=== PATIENT | female | born 1980 | race Caucasian/White ===

== ENCOUNTER 2022-05-02 17:41 | Emergency (ER) | payer BC, SELFPAY ==
--- NOTE | ~2022-05-02 | XR_ITS ---
XR chest 2V DATE: 05/02/2022 18:53 INDICATION: Chest pressure, dizziness. Hypertension. Headache. TECHNIQUE: PA and lateral views COMPARISON: None FINDINGS: Normal heart size. No hilar or mediastinal enlargement. No pulmonary infiltrate or consolid ation, pleural effusion or pulmonary vascular congestion or pneumothorax. Status post cholecystectomy. IMPRESSION: No active cardiopulmonary disease Reviewed, dictated and finalized at location A. PIT QUARRY SUPERVISOR
[2022-05-02 18:16] VITALS: BP 149/88; PULSE 95; RESP 16; TEMP 36.9; O2SAT 100
--- NOTE | 2022-05-02 18:20 | ECG_ITS ---
Measurements Intervals [place] Rate: 96 P: 46 DC: 154 QRS: 26 QRSD: 75 T: 1 QT: 347 QTc: 438 Interpretive Statements SINUS RHYTHM NO PREVIOUS ECG AVAILABLE FOR COMPARISON Electronically Signed On 05-03-2022 17:51:19 TENNIS COACH by Timothy Ruano M.D.
[2022-05-02 19:29] LABS: Basophils Absolute Auto 0.1 K/mm3 (0.0-0.1); Basophils Percent Auto 0.7 % (0.2-1.2); Eosinophils Absolute Auto 0.3 K/mm3 (0-0.3); Eosinophils Percent Auto 3.3 % (0-4.4); Hematocrit 40.4 % (37.0-47.0); Hemoglobin 13.1 g/dL (12.0-15.0); Immature Granulocyte Absolute 0.03 K/mm3 (0.00-0.031); Immature Granulocyte Percent A 0.3 % (0-0.5); Lymphocytes Absolute Auto 1.76 K/mm3 (0.9-3.2); Lymphocytes Percent Auto 17.7 % (18.3-44.2); Mean Corpuscular HGB Conc 32.4 g/dl (32-36); Mean Corpuscular Hemoglobin 29.8 pg (26-34); Mean Platelet Volume 9.8 fl (7.4-10.4); Monocytes Absolute Auto 0.7 K/mm3 (0.1-0.6); Platelet Count Result 411 k/mm3 (150-375); Red Blood Count 4.39 M/mm3 (4.2-5.4); Red Cell Distribution Width 12.5 % (11.5-14.5); White Blood Count 9.9 K/mm3 (4.5-10.0)
[2022-05-02 19:42] LABS: Alanine Aminotransferase 42 U/L (6-35); Alkaline Phosphatase 88 U/L (38-126); Anion Gap 6 mmol/L (8-16); Aspartate Amino Transferase 37 U/L (14-36); Bilirubin,Total 0.3 mg/dL (0.2-1.3); Blood Urea Nitrogen 10 mg/dL (7-17); Calcium 8.9 mg/dL (8.4-10.2); Carbon Dioxide 28 mmol/L (22-30); Chloride 100 mmol/L (98-107); Estimated CRCL calculation 102 ml/min; Estimated Glomerular Filt Rate > 60; Glucose 95 mg/dL (65-110); Lipase 95 U/L (23-300); Potassium 3.9 mmol/L (3.4-5.0); Sodium 134 mmol/L (137-145)
[2022-05-02 20:19] LABS: Troponin I < 0.012 ng/mL (0.000-0.034)
[2022-05-02 20:26] LABS: INR 1.1; Prothrombin Time 14.1 Seconds (11.1-14.7)
[2022-05-02 20:27] LABS: Partial Thromboplastin Time 31.7 SECONDS (22.3-36.8)
--- NOTE | 2022-05-02 21:35 | ED.GENADULT ---
HPI - General Adult General Chief complaint: Headache Stated complaint: hypertension Time Seen by Provider: 05/02/22 21:19 History of Present Illness HPI narrative: 41-year-old female states that she had a mild headache on her left side that was throbbing, fellow anxious and took her blood pressure, noticed that it was high, we did 10 minutes and took it again and noticed that it was even higher, and felt some chest discomfort. Related Data Allergies Allergy/AdvReac Type Severity Reaction Status Date / Time No Known Drug Allergies Allergy Mild Verified 09/14/18 11:22 Review of Systems Review of Systems: CONST: No fever. HEENT: No sore throat C/V: Some chest discomfort RESP: Cough for 2 weeks GI: No abdominal pain : No dysuria. M/S: No joint pain or lower extremity swelling. SKIN: No rash. NEURO: [Headache, no focal numbness or weakness] PSYCH: Somewhat anxious PMF Past Medical History Medical History IBS (irritable bowel syndrome) Family History Family History Other Asthma Family history of arthritis Family history of cardiovascular disease Family history of seizure disorder Social History Social History Alcohol intake: current Exam Narrative: EXAMINATION OF ORGAN SYSTEMS/BODY AREAS: Constitutional: Vital signs per nursing GENERAL:[No acute distress, non-toxic appearing.] HEAD: Normal with no signs of head trauma. EYES: EOMI, conjunctiva normal ENT: Hearing grossly intact LUNGS: Nonlabored breathing. HEART: [Regular rate and rhythm] ABD: [Soft], [nontender to palpation] EXT: Normal range of motion SKIN: [No rashes or lesions.] NEURO: [Alert and oriented x 3. C2-12 intact. No focal sensory or strength deficits. Ambulating with normal steady gait] PSYCH: Normal affect Course Vital Signs Vital signs: Vital Signs Temperature 98.4 F 05/02/22 18:16 Pulse Rate 95 05/02/22 18:16 Respiratory Rate 16 05/02/22 18:16 Blood Pressure 149/88 H 05/02/22 18:16 Pulse Oximetry 100 05/02/22 18:16 Oxygen Delivery Room Air 05/02/22 18:16 Temperature 98.4 F 05/02/22 18:16 Pulse Rate 95 05/02/22 18:16 Respiratory Rate 16 05/02/22 18:16 Blood Pressure 149/88 H 05/02/22 18:16 Pulse Oximetry 100 05/02/22 18:16 Oxygen Delivery Room Air 05/02/22 18:16 Medical Decision Making MDM Narrative Medical decision making narrative: Patient with hypertension. Very well appearing here with normal exam, No signs or symptoms of end organ dysfunction; no chest pain or shortness of breath, neurological deficits, severe headaches, visual disturbance, oliguria, or symptoms of dissection/AAA). PERC neg. Long-term risks of hypertension, especially uncontrolled, were discussed including increased risks of kidney disease, vascular disease, stroke and heart disease. We discussed lifestyle modifications including diet and exercise. Labs, EKG, CXR here are unremarkable. EKG - 12-Lead: Performed at 1921. Interpreted by me. [Sinus rhythm]. Rate 96. [Normal] axis. MO-interval [normal]. QRS duration [normal]. QTc [normal]. [No ST segment elevation or depression]. [T-wave normal]. Impression: No EKG evidence of acute ischemia or dysrhythmia. Patient is offered medicine for headache here which she declined as she does not like taking medicine, I did discuss with patient that I have lower concern for intracranial abnormality but that if anything were to worsen or change, she should come back and we can obtain imaging at that time. Patient expressed understanding of the instructions and strongly advised to follow-up with PMD for further management. Vital Signs Vital Signs: Vital Signs Temperature 98.4 F 05/02/22 18:16 Pulse Rate 95 05/02/22 18:16 Respiratory Rate 16 05/02/22 18:16 Blood Pressure 149/88 H 05/02/22 18:16 Pulse Oxim
== END 2022-05-02 22:08 | disposition home or self-care (01) ==
PROVIDERS: Emergency Medicine; Emergency Provider Emergency Medicine; PCP Family Medicine
DX: R51.9 Headache, unspecified (principal); I10 Essential (primary) hypertension; K58.9 Irritable bowel syndrome, unspecified
CPT/HCPCS: 36415; 71046; 80053; 83690; 84484; 85025; 85610; 85730; 93005; 99284

== ENCOUNTER 2022-05-15 16:18 | Emergency (ER) | payer BC, SELFPAY ==
--- NOTE | ~2022-05-15 | XR_ITS ---
EXAM: XR ankle LT min 3V DATE: 05/15/2022 17:25 HISTORY: left ankle pain, injury, fall, BRUISING/ DEFORITY . COMPARISON: None available. FINDINGS: Normal mineralization. Comminuted oblique fracture of the distal left tibial shaft with sl ightly less than one half shaft width lateral displacement. Comminuted, segmental fracture of the dis cullen left fibular shaft, with one half shaft width posterior displacement. No lytic or blastic lesion. Joint spaces are maintained. No erosion or periosteal change. Soft tissue swelling over the fracture sites. IMPRESSION: Comminuted and displaced fractures of the distal left tibial and fibular shafts. Reviewed, dictated and finalized at location K. OUND SALES CONSULTANT IMPRESSION: Comminuted and displaced fractures of the distal left tibial and fi bular shafts.
--- NOTE | ~2022-05-15 | XR_ITS ---
EXAM: XR knee LT min 4V DATE: 05/15/2022 17:25 HISTORY: left leg pain, injury, FALL TODAY, PAIN WITH MOVEMENT . COMPARISON: None available. FINDINGS: Normal mineralization. No fracture or dislocation. No lytic or blastic lesion. Minimal lef t knee osteoarthritis. No erosion or periosteal change. Soft tissues within normal limits. Small volu me joint effusion. IMPRESSION: No acute osseous finding in the left knee. Reviewed, dictated and finalized at location K. ECT SCHEDULER
--- NOTE | ~2022-05-15 | XR_ITS ---
EXAM: XR hip LT min 3V w AP pelvis DATE: 05/15/2022 17:25 HISTORY: left hip pain, fall TODAY, PAIN WITH MOVEMENT . COMPARISON: None available. FINDINGS: Normal mineralization. No fracture or dislocation. No lytic or blastic lesion. Joint space s are maintained. No erosion or periosteal change. Soft tissues within normal limits. IMPRESSION: No acute osseous finding in the left hip or pelvis. Reviewed, dictated and finalized at location K. MANAGER
[2022-05-15 16:25] VITALS: BP 146/99; PULSE 100; RESP 17; TEMP 37; O2SAT 100
[2022-05-15] MEDS: ONDANSETRON INJ 4 MG/2 ML VIAL IV PUSH (16:51)
[2022-05-15] MEDS: MORPHINE SULFATE (*CRX) 4 MG/ML INJ IV PUSH (16:52)
--- NOTE | 2022-05-15 16:58 | ED.FALL ---
HPI - Fall General Chief Complaint: Fall <Magaly Bell PA-C - Last Filed: 05/15/22 18:35> Stated Complaint: fall down stairs, left lower leg pain <KATHLEEN Walker Last Filed: 05/15/22 18:35> Time Seen by Provider: 05/15/22 16:23 <Magaly Bell PA-C - Last Filed: 05/15/22 18:35> Source: patient, family and EMS <KATHLEEN Walker Last Filed: 05/15/22 18:35> Mode of arrival: EMS <KATHLEEN Walker Last Filed: 05/15/22 18:35> Limitations: no limitations <KATHLEEN Walker Last Filed: 05/15/22 18:35> History of Present Illness HPI Narrative: This is a 41 year old female that presents to the ER for left ankle pain after an injury just prior to arrival. Reports she tripped walking down the steps in her home. Reports falling down about 3 steps. Reports swelling and pain to the ankle. Also reports left hip pain. Reports decreased ROM in the ankle due to pain. She did not hit her head or lose consciousness. Denies numbness. <Magaly Bell PA-C - Last Filed: 05/15/22 18:35> Related Data Allergies/Adverse Reactions: Allergies Allergy/AdvReac Type Severity Reaction Status Date / Time No Known Allergies Allergy Verified 05/15/22 16:31 <KATHLEEN Walker Last Filed: 05/15/22 18:35> Review of Systems Review of Systems: CONSTITUTIONAL: Denies fever, MUSCULOSKELETAL: Reports joint pain, and myalgia. NEUROLOGIC: Denies numbness, or weakness. <KATHLEEN Walker Last Filed: 05/15/22 18:35> All systems reviewed & are unremarkable except as noted in HPI and below <KATHLEEN Walker Last Filed: 05/15/22 18:35> PMFSH Past Medical History Medical History: Medical History IBS (irritable bowel syndrome) <Magaly Bell PA-C - Last Filed: 05/15/22 18:35> Family History Family History: Family History Other Asthma Family history of arthritis Family history of cardiovascular disease Family history of seizure disorder <Magaly Bell PA-C - Last Filed: 05/15/22 18:35> Social History Social History: Social History Alcohol intake: current <Magaly Bell PA-C - Last Filed: 05/15/22 18:35> Exam Narrative: GENERAL: Well-appearing, well-nourished, and in no acute distress. HEAD: Normocephalic, atraumatic. EYES: EOMI. NECK: No midline spinal tenderness CHEST: Clear to auscultation. No respiratory distress. No wheezes rales or rhonchi HEART: Regular rate and rhythm. No murmur heard. Normal peripheral pulses. EXTREMITIES: Normal range of motion. Left ankle with mild swelling and bruising. Normal DP pulse. Normal sensation SKIN: Warm, dry, no rash. NEURO: No focal deficits. Alert and oriented x3. Cranial nerves II through XII grossly intact PSYCH: Normal mood and affect <Magaly Bell PA-C - Last Filed: 05/15/22 18:35> Course Course Emergency Course: Patient and family updated on work-up <Magaly Bell PA-C - Last Filed: 05/15/22 18:35> PRISON TEACHER/PA Physician Supervision For this patient encounter, I reviewed the PRISON TEACHER or PA documentation, treatment plan, and medical decision making; and I had [id number] time with this patient. <Mauri Jay MD - Last Filed: 05/15/22 21:33> Consultations Consultation #1: Spoke with Dr. Nieto about patient and work-up. Recommends transfer to trauma facility <Magaly Bell PA-C - Last Filed: 05/15/22 18:35> Date: 05/15/22 <Magaly Bell PA-C - Last Filed: 05/15/22 18:35> Consultation #2: Spoke with Dr. Aviles about patient and workup, [facility] <Magaly Bell PA-C - Last Filed: 05/15/22 18:35> Date: 05/15/22 <Magaly Bell PA-C - Last Filed: 05/15/22 18:35> Vital Signs Vital signs: Vital Signs Temperature 98.6 F 05/15/22 16:25 Pulse Ra
--- NOTE | 2022-05-15 18:09 | PC.NURSE ---
house sup = EULALIA Villareal ems to [facility] ER
[2022-05-15] MEDS: fentaNYL CITRATE INJ (*CRX) 100 MCG/2 ML VIAL 50 MCG IV PUSH (18:11)
[2022-05-15 18:17] VITALS: BP 150/84; PULSE 102; RESP 18; O2SAT 100
== END 2022-05-15 18:40 | disposition short-term general hospital (02) ==
PROVIDERS: Emergency Provider Emergency Medicine; PCP Family Medicine
DX: S82.252A Displaced comminuted fracture of shaft of left tibia, initial encounter for closed fracture (principal); S82.452A Displaced comminuted fracture of shaft of left fibula, initial encounter for closed fracture; W10.9XXA Fall (on) (from) unspecified stairs and steps, initial encounter
CPT/HCPCS: 29505; 73502; 73564; 73610; 96374; 96375; 99285; J0131; J2270; J2405; J3010

== ENCOUNTER → 2023-01-25 12:18 | Outpatient (CLI) | payer BC, SELFPAY ==
--- NOTE | ~2023-01-25 | MM_ITS ---
EXAMINATION: MM screening [place] BI w nemo HISTORY: Screening mammogram TECHNIQUE: Craniocaudal and mediolateral oblique 3-D tomosynthesis images were obtained and synthetic 2-D images were generated. CAD analysis was submitted and interpreted. COMPARISON: No prior mammogram is available for comparison at this institution. BREAST PARENCHYMAL COMPOSITION: The breasts are almost entirely fatty. FINDINGS: There is no evidence of suspicious mass, calcification, or architectural distortion to sugg est malignancy in either breast. There has been no suspicious interval change. IMPRESSION: 1. No mammographic evidence of malignancy. 2. Recommend routine screening mammography in one year. BI-RADS Category 1: Negative Reviewed, dictated and finalized at location A.
== END ==
PROVIDERS: PCP Family Medicine; Visit Provider Nurse Practitioner
DX: Z12.31 Encounter for screening mammogram for malignant neoplasm of breast (principal)
CPT/HCPCS: 77063; 77067

== ENCOUNTER 2023-02-01 08:59 | Outpatient (CLI) | payer BC, SELFPAY ==
--- NOTE | 2023-02-01 | EST_ITS ---
Patient Info Name: Ingrid Lazcano Age: 42 years : 1980 Gender: Female Ht: 65 in Wt: 221 lbs BSA: 2.19 m2 HR: 101 bpm BP: 130 / 86 mmHg Heart Rhythm: Sinus Arrhythmia Exam Date: 02/01/2023 10:35 AM Exam Location: [facility] Stress Patient Status: Outpatient Admit Date: 02/01/2023 Staff Ordering Physician: Gordon, Bernice Morgan MD Attending Provider: Gordon, Bernice Morgan MD Exercise Technologist: Charisma Whitney, CT Nurse: Kaitlyn Dumas APN Exam Type: CA stress maurice w NM Study Info Indications R07.9 - Chest pain, unspecified A regadenoson stress test was performed. Summary 1. Please correlate with nuclear medicine images, reported separately. 2. No abnormal ST-T wave changes with lexiscan. 3. Supervising and interpreting physician is Dr. Chris Cadena. Protocol: Lexiscan Stress ECG Details Stage: REST Duration (min): 1 min : 25 sec HR (bpm): 92 SBP (mmHg): 130 DBP (mmHg): 86 Stage: REST Duration (min): 6 min : 4 sec HR (bpm): 109 SBP (mmHg): 130 DBP (mmHg): 86 Stage: STAGE 1 Duration (min): 0 min : 59 sec HR (bpm): 132 SBP (mmHg): 135 DBP (mmHg): 88 Stage: RECOVERY Duration (min): 1 min : 0 sec HR (bpm): 125 SBP (mmHg): 135 DBP (mmHg): 88 Stage: RECOVERY Duration (min): 2 min : 0 sec HR (bpm): 118 SBP (mmHg): 135 DBP (mmHg): 88 Stage: RECOVERY Duration (min): 3 min : 0 sec HR (bpm): 112 SBP (mmHg): 135 DBP (mmHg): 91 Stage: RECOVERY Duration (min): 3 min : 31 sec HR (bpm): 112 SBP (mmHg): 135 DBP (mmHg): 91 Rest HR: 109 bpm Peak HR: 133 bpm Rest Sys BP: 130 mmHg Peak Sys BP: 135 mmHg Max Pred HR: 180 bpm % Max Pred HR: 74 % Target HR: 153 bpm Max RPP: 17,955 bpm*mmHg BP Response: Normal blood pressure response Termination Reason: Completed protocol Cardiac Symptoms: None Total Time: 1 min : 0 sec Rest Rodriguez BP: 86 mmHg Peak Rodriguez BP: 91 mmHg Total Dose: 0.4 mg Resting ECG Normal sinus rhythm - normal ECG. Stress ECG No abnormal ST/T wave changes with exercise. Arrhythmias None. Report Signatures
--- NOTE | ~2023-02-01 | NM_ITS ---
EXAMINATION: NM maurice stress w perfusion DATE: 02/01/2023 11:34 INDICATION: Chest pain TECHNIQUE: Rest images were obtained following intravenous administration of 9.4 mCi Tc99m tetrofosmi n (Myoview). The patient was infused intravenously with Lexiscan (Regadenoson). Then, 30.8 mCi Tc99m tetrofosmin (Myoview) was administered intravenously, and stress images were obtained. Data was recon structed into short axis and horizontal and vertical long axis SPECT images. Gated SPECT images were also obtained. COMPARISON: None. FINDINGS: Small perfusion defect at the mid anterior wall on the rest and gated stress images, equivo tari on the gated stress images. There does however appear to be breast attenuation which passes acros s the anterior wall of the heart on the rotating source images suggests this is likely artifactual. P ave imaging was not obtained. There is normal left ventricular chamber size, wall motion and ejectio n fraction. Left ventricular ejection fraction measures >70%. IMPRESSION: 1. Small mild fixed perfusion defect at the mid anterior segment and could not exclude infarct howeve r based on location and appearance on the rotating source images this is more likely to represent patel ast attenuation artifact. No reversible ischemia. 2. Left ventricular ejection fraction measuring >70%. Reviewed, dictated and finalized at location A. IMPRESSION: 1. Small mild fixed perfusion defect at the mid anterior segment and could not exclude infarct however based on location and appearance on the rotating source images this is more likely to represent breast attenuation artifact. No revers ible ischemia. 2. Left ventricular ejection fraction measuring >70%.
== END 2023-02-01 09:00 | disposition home or self-care (01) ==
PROVIDERS: PCP Family Medicine; Visit Provider Family Medicine
DX: R07.9 Chest pain, unspecified (principal)
CPT/HCPCS: 78452; 93017; A9502; J2785

== ENCOUNTER 2023-02-03 12:04 | Emergency (ER) | payer BC, SELFPAY ==
--- NOTE | ~2023-02-03 | XR_ITS ---
XR tibia fibula LT 2V 02/03/2023 12:37 Indication: Recent surgery for leg fracture. Pain after injury today. Procedure: 2 views left tibia/fibula Comparison: 05/15/2022 Findings: There is an intramedullary haley transfixing the tibia. There is a healing distal tibial shaf t fracture with surrounding callus formation. There is a healing comminuted distal fibular diaphyseal fracture with incomplete osseous union. Surgical hardware in the tibia is intact. No definite acute fracture is identified. Mild soft tissue swelling anterior to the distal tibia fracture on the latera l view. No foreign bodies. Impression: 1: Healing fractures of the distal tibia metadiaphysis and distal fibular diaphysis with the tibial f racture transfixed by intramedullary haley with single proximal and distal interlocking screws. Reviewed, dictated and finalized at location A. Impression: 1: Healing fractures of the distal tibia metadiaphysis and distal fibular diaph ysis with the tibial fracture transfixed by intramedullary haley with single prox imal and distal interlocking screws.
[2023-02-03 12:29] VITALS: BP 146/75; PULSE 104; RESP 16; TEMP 37.1; O2SAT 100
--- NOTE | 2023-02-03 13:28 | ED.LOWEXIN ---
HPI - Extremity Injury (Lower) General Chief Complaint: Extremity Injury, Upper Stated Complaint: left leg pain Time Seen by Provider: 02/03/23 13:20 Source: patient, RN notes reviewed and old records reviewed Mode of arrival: ambulatory Limitations: no limitations History of Present Illness HPI Narrative: 42 year old female with complaints of increased pain to her left lower leg extending into the top of her foot since Sunday. Patient reports that she stepped wrong when she was putting son in lift and concerned of additional injury to leg. Patient had Fracture of left Tib/Fib in May and had surgery at [facility] with hardware. Patient reports that she had to have another surgery in December because it wasn't healing as well as possible. Patient has suture line to her anterior left lower leg well approximated with no redness or drainage, has absorbable suture in place. Patient states that her normal pain is usually 3/10 but has increased since Sunday to 5/10. She reports that she called ortho director of pulmonary unit from [facility] and either stated to come over there or get x-ray in area. MD complaint: leg injury Onset (ago): day(s) (3 days ago) Type of Injury: other (felt like she came down wrong on her left leg, no fall) Severity scale (1-10): 5 Exacerbating factors: weight bearing and movement Treatments prior to arrival: NSAIDS Related Data Home Medications Medication Instructions Recorded Confirmed cholestyramine (with sugar) 4 gram ea 02/03/23 oral powder losartan 100 tablet 02/03/23 mg-hydrochlorothiazide 25 mg tablet losartan 50 mg-hydrochlorothiazide tablet 02/03/23 12.5 mg tablet ropinirole 0.5 mg tablet mg 02/03/23 zolpidem 10 mg tablet mg 02/03/23 Allergies Allergy/AdvReac Type Severity Reaction Status Date / Time No Known Allergies Allergy Verified 02/03/23 12:36 Review of Systems Review of Systems: CONSTITUTIONAL: Denies fever, chills, or sweats. EYES: Denies visual changes, redness, or discharge. ENT: Denies rhinorrhea, congestion, sore throat, or otalgia. CARDIOVASCULAR: Denies chest pain, palpitations, or edema. RESPIRATORY: Denies cough or dyspnea. GASTROINTESTINAL: Denies abdominal pain, nausea, vomiting, or diarrhea. GENITOURINARY: Denies dysuria or hematuria. SKIN: Denies rash or itching. MUSCULOSKELETAL: Denies back pain, positive for increased discomfort to left lower leg radiating into left foot, or myalgia. NEUROLOGIC: Denies headache, numbness, or weakness. PSYCHIATRIC: Denies anxiety or depression. All systems reviewed & are unremarkable except as noted in HPI and below PMFSH Past Medical History Medical History (Updated 02/04/23 @ 18:33 by Brooklyn Chatman NP) Fractured tibia and fibula surgical repair with fixation High blood pressure Hypothyroidism IBS (irritable bowel syndrome) Restless leg syndrome Surgical History Surgical History (Updated 02/04/23 @ 18:34 by Brooklyn Chatman NP) History of cholecystectomy Previous section x2 Family History Family History Other Asthma Family history of arthritis Family history of cardiovascular disease Family history of seizure disorder Social History Social History (Updated 02/04/23 @ 18:35 by Brooklyn Chatman NP) Smoking status: Former smoker Alcohol intake: current Substance use type: does not use Living arrangements: with family Gender identity (if verbalized by the patient): Female Comments At time of signature, agree with nursing past medical, surgical, social and family history. There is no relevant family history pertinent to the presenting complaint Exam Narrative: GENERAL: Well-appearing, well-nourished, and in no acute distress. HEAD: Normocephalic, atraumatic. EYES: PERRLA and EOMI. ENT: Nares clear, no rhinorrhea or epistaxis. Mucous membranes moist.TM's normal throat pink with no swelling NECK:
== END 2023-02-03 13:47 | disposition home or self-care (01) ==
PROVIDERS: Emergency Provider Registered Nurse; PCP Family Medicine
DX: S86.912A Strain of unspecified muscle(s) and tendon(s) at lower leg level, left leg, initial encounter (principal); X50.9XXA Other and unspecified overexertion or strenuous movements or postures, initial encounter; I10 Essential (primary) hypertension; E03.9 Hypothyroidism, unspecified; G25.81 Restless legs syndrome
CPT/HCPCS: 73590; 99213; G0463

== ENCOUNTER → 2023-04-16 12:10 | Outpatient (CLI) | payer BC, SELFPAY ==
--- NOTE | ~2023-04-16 | US_ITS ---
EXAMINATION: US thyroid DATE: 04/16/2023 12:26 INDICATION: Goiter. TECHNIQUE: Multiple ultrasound images of the thyroid were obtained. COMPARISON: Ultrasound 04/25/2012 FINDINGS: The right thyroid lobe measures 4.7 x 1.8 x 1.7 cm. The left thyroid lobe measures 4.5 x 1.4 x 1.4 c m. The thyroid demonstrates heterogeneous echogenicity. Vascularity is normal. In the left thyroid l obe, there is a 4 mm nodule. IMPRESSION: 1. Small thyroid nodule, likely not clinically significant. No follow-up is needed. Reviewed, dictated and finalized at location E. LOADER IMPRESSION: 1. Small thyroid nodule, likely not clinically significant. No follow-up is nee ded.
== END ==
PROVIDERS: PCP Family Medicine; Visit Provider Internal Medicine
DX: E04.1 Nontoxic single thyroid nodule (principal)
CPT/HCPCS: 76536

== ENCOUNTER 2023-11-21 13:07 | Outpatient (CLI) | payer OTHER, SELFPAY ==
--- NOTE | ~2023-11-21 | US_ITS ---
EXAMINATION: US pelvic complete DATE: INDICATION: Abnormal uterine bleeding. TECHNIQUE: Multiple transabdominal sonographic images of the pelvis were obtained. COMPARISON: CT abdomen pelvis 06/03/2010 FINDINGS: The uterus measures 8.6 x 3.7 x 4.5 cm. There is no free fluid in the pelvis. The endometrial complex measures 5 mm in thickness. The right ovary measures 2.4 x 1.9 x 3.4 cm. The left ovary measures 4.0 x 2.4 x 3.0 cm. There is normal vascular flow in the ovaries. IMPRESSION: 1. Normal pelvis. Reviewed, dictated and finalized at location E. IMPRESSION: 1. Normal pelvis.
== END 2023-11-21 13:08 ==
PROVIDERS: PCP Nurse Practitioner Family; Visit Provider Nurse Practitioner Women's Health
DX: N93.8 Other specified abnormal uterine and vaginal bleeding (principal)
CPT/HCPCS: 76856

== ENCOUNTER 2024-04-09 15:28 | Outpatient (CLI) | payer OTHER, SELFPAY ==
--- NOTE | ~2024-04-09 | MM_ITS ---
EXAMINATION: MM screening [place] BI w nemo HISTORY: Screening TECHNIQUE: Craniocaudal and mediolateral oblique 3-D tomosynthesis images were obtained and synthetic 2-D images were generated. CAD analysis was submitted and interpreted. COMPARISON: Comparison to multiple prior studies sequentially, with oldest reviewed study dated 01/25. BREAST PARENCHYMAL COMPOSITION: Not dense: There are scattered areas of fibroglandular density. FINDINGS: There is a developing focal asymmetry laterally in the left breast on CC view with possible architectural distortion. The right breast is stable without evidence for malignancy. IMPRESSION: 1. Developing focal asymmetry laterally in the left breast on CC view. 2. Additional mammographic views and possible breast ultrasound are recommended. BI-RADS Category 0: Incomplete: Needs additional imaging evaluation. Reviewed, dictated and finalized at location B. DE BARREL POLISHER IMPRESSION: 1. Developing focal asymmetry laterally in the left breast on CC view. 2. Additional mammographic views and possible breast ultrasound are recommended . BI-RADS Category 0: Incomplete: Needs additional imaging evaluation.
== END 2024-04-09 15:29 | disposition home or self-care (01) ==
LOC: MICIMG 15:29
PROVIDERS: PCP Nurse Practitioner Women's Health; Visit Provider Nurse Practitioner Women's Health
DX: Z12.31 Encounter for screening mammogram for malignant neoplasm of breast (principal); N64.89 Other specified disorders of breast
CPT/HCPCS: 77063; 77067

== ENCOUNTER 2024-04-30 07:46 | Outpatient (CLI) | payer OTHER, SELFPAY ==
--- NOTE | ~2024-04-30 | MMUS_ITS ---
EXAMINATION: MM diagnostic [place] LT w nemo, US breast LT limited HISTORY: Architectural distortion of the left breast. TECHNIQUE: Additional 3-D tomosynthesis images of the left breast were performed and synthetic 2-D im ages were generated. CAD analysis was submitted and interpreted. High resolution Limited left breast ultrasound was performed. COMPARISON: 04/09/2024 and 01/25/2023 BREAST PARENCHYMAL COMPOSITION: Not dense: There are scattered areas of fibroglandular density. FINDINGS: MAMMOGRAPHIC FINDINGS: There is possible subtle architectural distortion in the upper central aspect of the left breast, mid dle third. No discrete mass identified. No suspicious calcifications. ULTRASOUND: Limited left breast ultrasound: No discrete solid or cystic mass is identified. IMPRESSION: 1. Possible subtle architectural distortion without sonographic correlate. 2. Recommend correlation with MRI of the breasts. BI-RADS Category 0: Incomplete: Needs additional imaging evaluation. Reviewed, dictated and finalized at location [] K BROKER SUPERVISOR IMPRESSION: 1. Possible subtle architectural distortion without sonographic correlate. 2. Recommend correlation with MRI of the breasts. BI-RADS Category 0: Incomplete: Needs additional imaging evaluation.
== END 2024-04-30 07:47 | disposition home or self-care (01) ==
LOC: MICIMG 07:47
PROVIDERS: PCP Nurse Practitioner Women's Health; Visit Provider Obstetrics & Gynecology Gynecology
DX: R92.8 Other abnormal and inconclusive findings on diagnostic imaging of breast (principal)
CPT/HCPCS: 76642; 77061; 77065; G0279

== ENCOUNTER 2024-07-17 19:23 | Emergency (ER) | payer OTHER, SELFPAY ==
--- NOTE | ~2024-07-17 | XR_ITS ---
XR abdomen obstructive series Ordering provider: Brooklyn Chatman NP History: . left upper abdomen pain . Comparison: None. FINDINGS: BOWEL: Nonobstructive bowel gas pattern. Fecal material is loaded in the colon suggestive of constipa tion. ORGANOMEGALY: None. SIGNIFICANT PATHOLOGIC CALCIFICATIONS: None. OTHER: No free air is seen under the diaphragm. IMPRESSION: NO ACUTE ABDOMINAL FINDINGS. Constipation. Reviewed, dictated and finalized at location A. ER MECHANIC
[2024-07-17 19:31] VITALS: BP 127/64; PULSE 88; RESP 20; TEMP 36.4; O2SAT 100
--- NOTE | 2024-07-17 19:43 | ED_ITS ---
HPI - Abdominal Pain General Chief Complaint: Abdominal Pain Stated Complaint: left upper stomach tender,burping Time Seen by Provider: 07/17/24 19:35 Source: patient, RN notes reviewed and old records reviewed Mode of arrival: ambulatory Limitations: no limitations History of Present Illness HPI narrative: 43-year-old female presents to [facility] with complaints of 48 hours of upper left abdominal pain with bloating. Patient reports that she has had increased burping that smell like sulfa and had weird taste, nausea and has felt feverish with fatigue.. Patient reports history of constipation takes cholestyramine 2 times daily to try to make bowels regular. Patient reports that her last bowel movement was on July 09.Patient reports that she has never seen GI doctor but PCP thinks she may have IBS-C. Patient reports that when she does have bowel movements her abdomen hurts really bad. MD elicited complaint: abdominal pain Pertinent past history: constipation and other (gallbladder disease) Onset (ago): hour(s) (48hours) Pain Consistency: intermittent Location: [facility] Severity: moderate Quality: aching and dull Associated symptoms: nausea, constipation and other (feverish and fatigued) Treatments prior to arrival: antacids and other (Tums, alvaro tabs increase water) Related Data Home Medications ?Medication ?Instructions ?Recorded ?Confirmed ?Last Taken ?Type cholestyramine (with sugar) 4 gram 1 ea PO BID 02/03/23 01/21/24 Unknown History oral powder losartan 100 1 tablet PO DAILY 02/03/23 01/21/24 Unknown History mg-hydrochlorothiazide 25 mg tablet zolpidem 10 mg tablet 10 mg PO HS PRN Insomnia 02/03/23 01/21/24 Unknown History aspirin 81 mg tablet,delayed 81 mg PO DAILY 04/12/23 01/21/24 Unknown History release calcium carbonate (Calcium 600) 600 mg PO DAILY 04/12/23 01/21/24 Unknown History cyclobenzaprine 10 mg tablet 10 mg PO HS 09/24/23 01/21/24 Unknown History ropinirole 0.5 mg tablet 0.5 mg PO BID 09/24/23 01/21/24 Unknown History xfwnsffu-fiy-njnx-FA-Ca carb-vit K 1 tablet PO DAILY 01/21/24 01/21/24 Unknown History 18 mg iron-400 mcg-500 mg tablet (Women's One Daily) Allergies Allergy/AdvReac Type Severity Reaction Status Date / Time No Known Allergies Allergy Verified 07/17/24 19:25 Review of Systems Review of Systems: CONSTITUTIONAL: states has felt feverish denies any chills, or sweats.fatigue ENT: Denies rhinorrhea, congestion, sore throat, or otalgia. CARDIOVASCULAR: Denies chest pain, palpitations, or edema. RESPIRATORY: Denies cough or dyspnea. GASTROINTESTINAL: Reports left upper left abdominal discomfort for 48 hours reports nausea, no vomiting, no diarrhea reports constipation. GENITOURINARY: Denies dysuria or hematuria. SKIN: Denies rash or itching. MUSCULOSKELETAL: Denies back pain, joint pain, or myalgia. NEUROLOGIC: Denies headache, numbness, or weakness. All systems reviewed & are unremarkable except as noted in HPI and below PMFSH Past Medical History Medical History Fractured tibia and fibula surgical repair with fixation Restless leg syndrome Hypothyroidism IBS (irritable bowel syndrome) High blood pressure Surgical History Surgical History History of cholecystectomy Previous section x2 Family History Family History Other Asthma Family history of arthritis Family history of cardiovascular disease Family history of seizure disorder Social History Social History Years smoked: 15 Smoking status: Former smoker Tobacco type: cigarettes Smoking end date: 01/20/09 Alcohol intake: current Substance use type: does not use Lack of Transportation: No Lack of Food: Never True Current Housing: I Have Housing Concerned About Future Housing: No Difficulty Paying Gas/Electric Bills: No Difficulty Paying for Meds: No Currently Unemployed: No Education: Associate Degree Difficulty w/ Childcare or Family Care: YES Living arrangements: with family Gender identity (if verbalized by the patient): Female Spiritual care concerns: No Comments At time of signature, agree with nursing past medical, surgical, social and family history. There is no relevant family history pertinent to the presenting complaint Exam Narrative: GENERAL: Well-appearing, well-nourished, and in no acute distress. HEAD: Normocephalic, atraumatic. EYES: PERRLA, conjunctivae clear, and EOMI. ENT: Nares clear. Mucous membranes moist. Oropharynx without edema, erythema, or lesions. Tonsils not enlarged and without exudate. NECK: Supple. No lymphadenopathy CHEST: Speaks in full sentences. No respiratory distress.SAO2 100% on room air HEART: Regular rate and rhythm. ABDOMEN: Soft,, distended. No guarding, no rebound tenderness, or rigidity, reports some tenderness to left upper abdominal area ,on palpation, No pulsatilla masses. Bowel sounds present in all four quadrants. No organomegaly. Negative De Jesus?s sign. No periumbilical tenderness.McBurney point tenderness, No Supra public tenderness or distension. Good femoral pulses bilaterally. No hernia noted. laparoscopic and scars, no surface trauma. SKIN: Warm, dry, no rash. NEURO:? Alert and oriented x3. PSYCH: Normal mood and affect Course Course Emergency Course: Patient is aware of diagnosis, understands and agrees to treatment plan.? Anticipatory guidance given.? Patient agrees to follow-up as directed and is aware of reasons to seek care at the emergency department. Portions of this record may have been created with voice recognition software Level of Care: Express Care Visit Vital Signs Vital signs: Vital Signs Temperature 36.4 C 07/17/24 19:31 Pulse Rate 88 07/17/24 19:31 Respiratory Rate 20 07/17/24 19:31 Blood Pressure 127/64 07/17/24 19:31 Pulse Oximetry 100 07/17/24 19:31 Oxygen Delivery Room Air 07/17/24 19:31 Temperature 36.4 C 07/17/24 19:31 Pulse Rate 88 07/17/24 19:31 Respiratory Rate 20 07/17/24 19:31 Blood Pressure 127/64 07/17/24 19:31 Pulse Oximetry 100 07/17/24 19:31 Oxygen Delivery Room Air 07/17/24 19:31 Reviewed MDM - Abdominal Pain MDM Narrative Medical decision making narrative: No evidence of pancreatitis, AAA, cholecystitis, choledocholithiasis, cholangitis, mesenteric ischemia, small bowel obstruction, diverticulitis, colitis, appendicitis, or pelvic etiology such as ovarian/testicular torsion, TOA, or ectopic .? Patient has no history of peptic ulcer, H. pylori, chronic aspirin NSAID or corticosteroid use, chronic alcohol use, no history of inflammatory bowel disease, no history of active abdominal infection or malignancy.? Patient has no history of hernia or intra-abdominal surgeries, patient denies absence of flatus, constipation, melena, hematemesis. Patient denies post-prandial pain. No pain-out of proportion. Exam findings show no acute concerns or changes; patient is non-toxic appearing and is in no distress.? Patient is appropriate for outpatient treatment and follow-up. Differential Diagnosis Differential diagnosis: Likely abdominal pain, constipation, diverticulitis, pancreatitis and small bowel obstruction Medical Records Attestation: I reviewed the patient's medical records. Lab Data Attestation: I reviewed the patient's lab results. Lab results narrative: urine dip 3+ blood and 1+ leukocytes patient report just finishing menses Labs: Lab Results 07/17/24 Range/Units 19:55 POC Urine Color Yellow POC Urine Clarity Clear POC Urine pH 7.0 POC Ur Specif [place] 1.015 POC Urine Protein Negative (Negative) POC Ur Glucose (UA) Negative (Negative) POC Urine Ketones Negative (Negative) POC Urine Blood 3+ (Negative) POC Urine Nitrite Negative (Negative) POC Urine Bilirubin Negative (Negative) POC Urine Urobilinogen 0.2 POC U Leukocyte Esteras 1+ (Negative) reviewed Imaging Data Attestation: I personally reviewed and interpreted this imaging study as follows: My impression: constipation, no free air, no acute abdominal findings Radiologist's impression: ITS Impressions Abdomen X-Ray 07/17/24 20:18 IMPRESSION: NO ACUTE ABDOMINAL FINDINGS. Constipation. [address] [address] XRay Report Signed Patient: Ingrid Lazcano : 1980 MR#: [id number] Age: 43 Acct:[id number] Loc: [facility] ADM Date: 07/17/24Attending Dr: Ordering Physician: Brooklyn Chatman APRN Date of Service: 07/17/24 Procedure(s): XR abdomen obstructive series Accession Number(s): [id number] cc: Irene, Abbie COMPENSATION ADJUSTER; Brooklyn Chatman APRN~ XR abdomen obstructive series Ordering provider: Brooklyn L. Compa, MANAGER WELDING History: . left upper abdomen pain . Comparison: None. FINDINGS: BOWEL: Nonobstructive bowel gas pattern. Fecal material is loaded in the colon suggestive of constipation. ORGANOMEGALY: None. SIGNIFICANT PATHOLOGIC CALCIFICATIONS: None. OTHER: No free air is seen under the diaphragm. IMPRESSION: NO ACUTE ABDOMINAL FINDINGS. Constipation. Reviewed, dictated and finalized at location A. AR SHAPER OPERATOR Please be advised this is a medical document. It is intended for [id number] communication. It is written in medical language and may contain unfamiliar abbreviations or verbiage. Medical documents are intended to carry relevant information, facts as evident, and the clinical opinion of the practitioner at the time of the encounter. This report may have been done utilizing a voice recognition system. Attempts have been made to correct errors. However, there may be uncorrected grammatical, spelling, and recognition errors present. The file time of this note does not necessarily represent the time of service. Dictated By: Glenroy Ovalles MD 07/17/242017 Signed By: <Electronically signed by Glenroy Ovalles MD in OV> Critical Care Time Critical Care Time Critical Care Time: No Discharge Plan Discharge Clinical Impression: Abdominal pain, left upper quadrant, Leukocytes in urine Constipation Qualifiers: Constipation type: unspecified constipation type Qualified Code(s): K59.00 - Constipation, unspecified Patient Disposition: Home, Self-Care Condition: Stable Instructions: Constipation (DC), Abdominal Pain (ED) Additional Instructions: Increase oral fluids avoid milk products present time MiraLax one full cap once daily along with cholestyramine 2 times a day Take Ducolax tabs 2 po today Keflex by mouth 2 times daily for leukocytes in urine for 5 days Make appointment with GI doctor for follow up in regards to constipation and possible IBS Dr Shreyas hallman [phone] Monitor for any fevers If increased pain or any concerns go directly to the emergency room If your symptoms persist, change or worsen significantly before you can contact your personal physician then please, without delay, go to the emergency department for further evaluation. Follow-up with PCP in 7-10 days or sooner if needed Patient Language: Tamaz[place] Prescriptions: New cephalexin 500 mg capsule 500 mg PO Q12H Qty: 10 0RF No Action losartan-hydrochlorothiazide 100-25 mg tablet 1 tablet PO DAILY zolpidem 10 mg tablet 10 mg PO HS PRN (Reason: Insomnia) cholestyramine (with sugar) 4 gram powder 1 ea PO BID ropinirole 0.5 mg tablet 0.5 mg PO BID cyclobenzaprine 10 mg tablet 10 mg PO HS aspirin 81 mg tablet,delayed release (DR/EC) 81 mg PO DAILY calcium carbonate [Calcium 600] 600 mg calcium (1,500 mg) tablet 600 mg PO DAILY Women's One Daily 18 mg iron-400 mcg-500 mg Tablet 1 tablet PO DAILY Follow-up/Referrals: Irene,ENEIDA Leiva [Primary Care Provider] - Time of Disposition: 20:34 Quality [place] Coma Scale Eyes: Open Verbal: Oriented and Alert Motor: Follows Commands Saira Coma Total Score: 15
[2024-07-17 20:02] LABS: EDUAAPPEAR Clear; EDUABILI Negative (Negative); EDUABLOOD 3+ (Negative); EDUACOLOR1 Yellow; EDUAGLUCOSE Negative (Negative); EDUAKETONE Negative (Negative); EDUALEUKO 1+ (Negative); EDUANITRATE Negative (Negative); EDUAPROTEIN Negative (Negative); EDUASPGRAVITY 1.015; EDUAUROBILI 0.2
== END 2024-07-17 20:35 | disposition home or self-care (01) ==
PROVIDERS: Emergency Provider Registered Nurse; PCP Nurse Practitioner Women's Health
DX: R10.12 Left upper quadrant pain (principal); R82.998 Other abnormal findings in urine; K59.00 Constipation, unspecified; Z87.891 Personal history of nicotine dependence; G25.81 Restless legs syndrome; E03.9 Hypothyroidism, unspecified; I10 Essential (primary) hypertension; Z79.82 Long term (current) use of aspirin
CPT/HCPCS: 74019; 81003; 87086; 99213; G0463